=== PATIENT | female | born 1980 | race Caucasian/White ===

== ENCOUNTER 2020-09-15 13:53 | Outpatient (CLI) | payer BC, SELFPAY ==
--- NOTE | ~2020-09-15 | MMUS_ITS ---
EXAMINATION: MM diagnostic eveline BI w zoey, US breast RT limited HISTORY: Palpable right breast mass TECHNIQUE: Additional 3-D tomosynthesis images of the breasts were performed and synthetic 2-D images were generated. CAD analysis was submitted and interpreted. High resolution Limited right breast ult rasound was performed. COMPARISON: 08/12/2013 BREAST PARENCHYMAL COMPOSITION: The breasts are heterogenously dense, which may obscure small masses. FINDINGS: MAMMOGRAPHIC FINDINGS: There are no suspicious masses, calcifications or architectural distortion in either breast to sugges t malignancy. ULTRASOUND: Limited right breast ultrasound: At 10:00, 1 cm from the nipple in the area of palpable concern there is an oval slightly irregular shaped hypoechoic mass measuring 13 x 12 x 7 mm. There is mixed exhibitor sales ior attenuation. There is internal vascularity. IMPRESSION: 1. Irregular shaped 13 mm right breast mass at 10:00, 1 cm from the nipple. 2. Ultrasound-guided right breast biopsy recommended. BI-RADS category 4, suspicious findings. Reviewed, dictated and finalized at location A. IMPRESSION: 1. Irregular shaped 13 mm right breast mass at 10:00, 1 cm from the nipple. 2. Ultrasound-guided right breast biopsy recommended. BI-RADS category 4, suspicious findings.
== END 2020-09-15 13:54 | disposition home or self-care (01) ==
PROVIDERS: Visit Provider Obstetrics & Gynecology
DX: N63.10 Unspecified lump in the right breast, unspecified quadrant (principal); R92.8 Other abnormal and inconclusive findings on diagnostic imaging of breast
CPT/HCPCS: 76642; 77062; 77066; G0279

== ENCOUNTER → 2020-09-21 06:48 | Outpatient (CLI) | payer BC, SELFPAY ==
[2020-09-22 17:40] LABS: SARS-CoV-2 RNA PCR Negative
== END ==
DX: Z20.822 Contact with and (suspected) exposure to COVID-19 (principal); R50.9 Fever, unspecified
CPT/HCPCS: C9803; U0003; U0005

== ENCOUNTER → 2020-12-16 01:28 | Outpatient (CLI) | payer BC, SELFPAY ==
[2020-12-16 20:12] LABS: SARS-CoV-2 RNA PCR Negative
== END ==
PROVIDERS: PCP Physician Assistant; Visit Provider Physician Assistant
DX: R43.2 Parageusia (principal); Z20.822 Contact with and (suspected) exposure to COVID-19
CPT/HCPCS: C9803; U0003; U0005

== ENCOUNTER → 2020-12-22 17:28 | Outpatient (CLI) | payer BC, SELFPAY ==
--- NOTE | ~2020-12-22 | XR_ITS ---
XR chest 2V DATE: 12/22/2020 18:24 INDICATION: Cough TECHNIQUE: 2 views COMPARISON: None FINDINGS: Heart size is within normal range.. No hilar or mediastinal enlargement. No pulmonary infil trate or consolidation, pleural effusion or pulmonary vascular congestion or pneumothorax. Prominent thoracic scoliosis. IMPRESSION: No active cardiopulmonary disease Reviewed, dictated and finalized at location A.
== END ==
PROVIDERS: PCP Physician Assistant; Visit Provider Physician Assistant
DX: R05 Cough (principal); M41.9 Scoliosis, unspecified
CPT/HCPCS: 71046

== ENCOUNTER 2022-07-20 09:37 | Outpatient (CLI) | payer BC, SELFPAY ==
--- NOTE | ~2022-07-20 | CT_ITS ---
CT scan of the Neck Technique: 2.5 mm axial scans were obtained through the neck after intravenous administration of 75 c c Omnipaque 350. Coronal and sagittal reconstructions of the neck were obtained. Dose reduction techn ique was used on this scan by utilizing automated exposure control and iterative reconstruction techn ique. The dose-length product (DLP) was 501.12 mGy-cm. Clinical History: Localized swelling or mass Findings: There is no evidence of any significant cervical lymphadenopathy. Several small, nonenlarged jugulo- digastric and posterior cervical lymph nodes are noted bilaterally. Parapharyngeal spaces appear norm al bilaterally. The parotid and submandibular glands appear normal. The pharyngeal mucosal spaces appear normal. No soft tissue masses are seen in the neck. The thyroid gland appears normal. Images of the lung apices reveal no abnormalities. There is sinus d isease involving the right frontal sinus, bilateral ethmoid air cells, bilateral maxillary sinuses, a nd left sphenoid sinus. Impression: Extensive sinus disease, as above. No abnormal mass lesion identified. Reviewed, dictated and finalized at location . Impression: Extensive sinus disease, as above. No abnormal mass lesion identified.
== END 2022-07-20 09:38 | disposition home or self-care (01) ==
PROVIDERS: PCP Physician Assistant; Visit Provider Physician Assistant
DX: R22.1 Localized swelling, mass and lump, neck (principal); J32.4 Chronic pansinusitis
CPT/HCPCS: 70491; Q9967

== ENCOUNTER 2022-11-22 09:30 | Emergency (ER) | payer BC, SELFPAY ==
--- NOTE | ~2022-11-22 | CT_ITS ---
CT of the Abdomen and Pelvis: Indication: Abdominal pain Technique: 2.5 mm axial scans were obtained through the abdomen and pelvis following intravenous adm inistration of 100 cc of Omnipaque 350. Dose reduction technique was used on this scan by utilizing a utomated exposure control and iterative reconstruction technique. The dose-length product (DLP) was 3 17.99 mGy-cm. COMPARISON: 05/25/2015 Findings: Scans through the lung bases are unremarkable. Several scattered hepatic cysts are present. The spleen, pancreas, gallbladder, adrenals and kidneys are within normal limits. No evidence of aortic aneurysm. No lymphadenopathy. No bowel obstruction or bowel wall thickening. There is no evidence to suggest acute appendicitis. Images through the pelvis were performed. Urinary bladder unremarkable. No adnexal mass seen. Trace p elvic free fluid present. Impression: No significant abnormalities seen. Reviewed, dictated and finalized at [facility]. Impression: No significant abnormalities seen.
[2022-11-22 09:35] VITALS: BP 131/85; PULSE 86; RESP 16; TEMP 36.9; O2SAT 98
[2022-11-22 09:55] LABS: Basophils Absolute Auto 0.1 K/mm3 (0.0-0.1); Basophils Percent Auto 0.7 % (0.2-1.2); Eosinophils Absolute Auto 0.2 K/mm3 (0-0.3); Eosinophils Percent Auto 2.6 % (0-4.4); Hematocrit 40.7 % (37.0-47.0); Hemoglobin 13.3 g/dL (12.0-15.0); Lymphocytes Absolute Auto 2.42 K/mm3 (0.9-3.2); Mean Corpuscular HGB Conc 32.7 g/dl (32-36); Mean Corpuscular Hemoglobin 29.8 pg (26-34); Mean Corpuscular Volume 91.3 fl (80-100); Mean Platelet Volume 9.5 fl (7.4-10.4); Monocytes Absolute Auto 0.5 K/mm3 (0.1-0.6); Monocytes Percent Auto 6.7 % (2.6-8.5); Neutrophils Absolute Auto 4.2 K/mm3 (1.3-6.7); Platelet Count Result 240 k/mm3 (150-375); Red Blood Count 4.46 M/mm3 (4.2-5.4); Red Cell Distribution Width 13.1 % (11.5-14.5); White Blood Count 7.3 K/mm3 (4.5-10.0)
--- NOTE | 2022-11-22 09:59 | ED.ABDPAIN ---
HPI - Abdominal Pain General Chief Complaint: Abdominal Pain Stated Complaint: R rib pain Time Seen by Provider: 11/22/22 09:35 Source: patient Mode of arrival: ambulatory Limitations: no limitations History of Present Illness HPI narrative: Patient is a 42-year-old female, w/ PMH of IBS, who presents to the ED with right-sided abdominal pain. Patient reports she was on a 3 mile walk with her yesterday afternoon when she developed pain in her right upper abdomen. She states pain was worse with walking/movement. Pain has been sharp and stabbing, at most rated an 8 out of 10 on the pain scale. She states the pain radiates around to her right mid back and down to her right lower abdomen. She denies ever having pain like this before. She has not tried anything for the pain. Patient also reports having nausea, denies vomiting. She has not eaten since the pain began. Denies diarrhea or constipation. Notes she had 3 bowel movements yesterday. Reports some difficulty urinating, denies hematuria. Denies fevers. Denies difficulty breathing/CP. Related Data Allergies Allergy/AdvReac Type Severity Reaction Status Date / Time codeine Allergy Mild Vomiting Verified 11/15/21 10:20 Review of Systems Review of Systems: CONSTITUTIONAL: Denies fever, chills, or sweats. CARDIOVASCULAR: Denies chest pain. RESPIRATORY: Denies dyspnea. GASTROINTESTINAL: See HPI. GENITOURINARY: See HPI. SKIN: Denies rash or itching. MUSCULOSKELETAL: See HPI. NEUROLOGIC: Denies headache, numbness, or weakness. All systems reviewed & are unremarkable except as noted in HPI and below PMFSH Past Medical History Medical History Breast mass, right (09/15/20) IBS (irritable bowel syndrome) Migraines Skin cancer Surgical History Surgical History H/O LEEP H/O: hysterectomy History of melanoma excision History of orthopedic surgery cyst removed from shoulder S/P lumpectomy, right breast (02/28/20) lobular carcinoma in situ Family History Family History Grandparent Lung cancer paternal grandfather Father Carcinoma of colon Sibling Pichardo's sarcoma of bone sister Social History Social History Smoking status: Never smoker Smoking end date: 06/27/21 Alcohol intake: current Alcohol use details: 1-2 month Substance use: never Substance use type: does not use Living arrangements: other Additional living arrangements comments: Occupation/Education: occupation 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 HEAD: Normocephalic, atraumatic. NECK: Supple. No adenopathy, no masses. RESPIRATORY: Airway patent, respirations nonlabored. Clear to auscultation bilaterally, no rales, rhonchi, wheezing. CARDIOVASCULAR: Regular rate and rhythm without murmurs, rubs, or gallops. Radial pulses 2+ and equal bilaterally. ABDOMINAL: Soft, tenderness in epigastric region, RUQ, R mid abdomen, RLQ, nondistended, no hepatosplenomegaly. Normoactive BS. MUSCULOSKELETAL: Moves all extremities. Strength/ROM intact without gross deformities. SKIN: Warm, dry, normal color. No rashes. NEURO: A&O X3. Speech clear. Cranial nerves II-XII grossly intact. Steady gait. No ataxic movements. PSYCHIATRIC: Appropriate mood and affect. Normal interaction. Course Vital Signs Vital signs: Vital Signs Temperature 98.5 F 11/22/22 09:35 Pulse Rate 86 11/22/22 09:35 Respiratory Rate 16 11/22/22 09:35 Blood Pressure 131/85 11/22/22 09:35 Pulse
[2022-11-22 10:09] LABS: Appearance Urine Clear (Clear); Bacteria Urine None Seen /hpf; Bilirubin Urine Negative (Negative); Blood Urine Negative (Negative); Color Urine Yellow (Yellow); Glucose Urine UA Negative (Negative); Ketones Urine Negative (Negative); Leukocyte Esterase Ur 2+ LEU/UL (Negative); Nitrate Urine Negative (Negative); Non Pathogenic Casts 0-2; Protein Urine Negative (Negative); RBC Urine 0-2 /hpf (0-2); Specific Grav Ur 1.009 (1.001-1.035); Squamous Epithelial Cell Urine None seen /hpf (Few); Urobilinogen Urine 0.2 mg/dL (<2.0); pH Urine 7.5 (5.0-9.0)
[2022-11-22 10:11] LABS: Alanine Aminotransferase 16 U/L (6-35); Albumin Level 4.3 g/dL (3.5-5.1); Alkaline Phosphatase 61 U/L (38-126); Anion Gap 8 mmol/L (8-16); Aspartate Amino Transferase 23 U/L (14-36); Bilirubin,Total 0.4 mg/dL (0.2-1.3); Blood Urea Nitrogen 7 mg/dL (7-17); Calcium 8.7 mg/dL (8.4-10.2); Carbon Dioxide 26 mmol/L (22-30); Chloride 101 mmol/L (98-107); Estimated CRCL calculation 77 ml/min; Estimated Glomerular Filt Rate > 60; Glucose 112 mg/dL (65-110); Lipase 53 U/L (23-300); Potassium 3.9 mmol/L (3.4-5.0); Sodium 135 mmol/L (137-145)
[2022-11-22 10:18] LABS: Add Urine Microscopic? YES
[2022-11-22] MEDS: SODIUM CHLORIDE 0.9% IV 1,000 ML 999 ML IV CONT (10:57)
[2022-11-22] MEDS: MORPHINE SULFATE (*CRX) 4 MG/ML INJ IV PUSH (10:57)
[2022-11-22] MEDS: FAMOTIDINE 20 MG/2 ML VIAL IV PUSH (10:58)
[2022-11-22] MEDS: ONDANSETRON INJ 4 MG/2 ML VIAL IV PUSH (10:58)
[2022-11-22 12:16] VITALS: BP 127/84; O2SAT 98
[2022-11-22] MEDS: KETOROLAC 30 MG/ML VIAL (*BKC) IV PUSH (12:35)
== END 2022-11-22 12:53 | disposition home or self-care (01) ==
PROVIDERS: Emergency Medicine; Emergency Provider Physician Assistant; PCP Physician Assistant
DX: N30.00 Acute cystitis without hematuria (principal); R10.11 Right upper quadrant pain; K58.9 Irritable bowel syndrome, unspecified; Z85.820 Personal history of malignant melanoma of skin; Z87.891 Personal history of nicotine dependence; Z90.710 Acquired absence of both cervix and uterus
CPT/HCPCS: 36415; 74177; 80053; 81001; 83690; 85025; 87086; 96361; 96374; 96375; 99284; J1885; J2270; J2405; J7030; Q9967